=== PATIENT | male | born 1985 | race African-American/Black ===

== ENCOUNTER 2021-01-07 18:25 | Emergency (ER) | payer MEDICAID, OTHER ==
[~2021-01-07] VITALS: Ht 182.9 cm; Wt 99.1 kg
[2021-01-07 18:38] VITALS: BP 170/80
[2021-01-07] MEDS ORDERED: MAGNESIUM/ALUMINUM HYDROXIDE/SIMETHICONE 30ML UDC PO STA (20:17)
[2021-01-07] MEDS ORDERED: ONDANSETRON 4MG ODT PO STA (20:17)
[2021-01-07 22:26] LABS: BASOPHILS % 0.5 % (0.0-2.0); CHLORIDE 108 mEq/L (98-107); EOSINOPHILS % 3.3 % (0.0-5.0); HEMATOCRIT. 40.7 % (42.0-52.0); HEMOGLOBIN. 13.5 g/dL (14.0-18.0); LYMPHOCYTES % 40.3 % (20.0-50.0); MEAN CORPUSCULAR HEMOGLOBIN 27.6 pg (28.0-32.0); MEAN CORPUSCULAR VOLUME 83.2 fL (80.0-94.0); MEAN PLATELET VOLUME 7.6 fl (7.4-10.4); MONOCYTES % 9.3 % (2.0-8.0); NEUTROPHILS % 46.6 % (40.0-76.0); PLATELET 266 x1000/uL (130-400); RED BLOOD CELL COUNT 4.89 mill/uL (4.7-6.1); RED CELL DISTRIBUTION WIDTH 13.9 % (11.6-14.6)
[2021-01-07 22:29] LABS: ETHANOL BLOOD < 10 mg/dL
[2021-01-07] MEDS ORDERED: PROT20 MT (22:34)
[2021-01-07] MEDS ORDERED: ONDA4TAB5 MT (22:34)
== END 2021-01-07 22:43 | disposition home or self-care (01) ==
LOC: ER 18:25
DX: B34.9 Viral infection, unspecified (principal); R19.7 Diarrhea, unspecified; R11.2 Nausea with vomiting, unspecified; Z20.822 Contact with and (suspected) exposure to COVID-19; Z87.828 Personal history of other (healed) physical injury and trauma; Z98.890 Other specified postprocedural states
CPT/HCPCS: 36415; 80053; 80320; 83690; 85025; 93005; 99284; C9803; Q0162; U0003; U0005; G0480

== ENCOUNTER 2023-03-04 10:44 | Emergency (ER) | payer MEDICAID, OTHER ==
[~2023-03-04] VITALS: Ht 182.9 cm; Wt 96.0 kg
[~2023-03-04 10:44] MED LIST: ONDA4TAB5 MT; PROT20 MT
[2023-03-04 11:22] LABS: BASOPHILS % 0.3 % (0.0-2.0); EOSINOPHILS % 0.1 % (0.0-5.0); HEMATOCRIT. 43.5 % (42.0-52.0); HEMOGLOBIN. 14.1 g/dL (14.0-18.0); LYMPHOCYTES % 11.8 % (20.0-50.0); MEAN CORPUSCULAR HGB CONC 32.5 g/dL (31.0-37.0); MEAN CORPUSCULAR VOLUME 86.2 fL (80.0-94.0); MONOCYTES % 5.4 % (2.0-8.0); NEUTROPHILS % 82.4 % (40.0-76.0); PLATELET 307 x1000/uL (130-400); RED BLOOD CELL COUNT 5.04 mill/uL (4.7-6.1); RED CELL DISTRIBUTION WIDTH 14.3 % (11.6-14.6); WHITE BLOOD COUNT 7.8 x1000/uL (4.5-11.0)
[2023-03-04] MEDS ORDERED: HALOPERIDOL LACTATE 5MG/ML VIAL IM ONE (11:30)
[2023-03-04] MEDS ORDERED: DIPHENHYDRAMINE 50MG/ML VIAL IV ONE (11:30)
[2023-03-04] MEDS ORDERED: LORAZEPAM 2MG/ML CPJ IV ONE (11:30)
[2023-03-04] MEDS ORDERED: SODIUM CHLORIDE 0.9% 1,000 ML IV ONE (11:30)
[2023-03-04 11:45] LABS: INDEX HEMOLYSI 1 (1-3); INDEX ICTERIC 1 (1-4); INDEX LIPEMIC 1 (1-3)
[2023-03-04 11:53] LABS: ALANINE AMINOTRANSFERASE 36 IU/L (13-61); ALBUMIN 3.7 g/dL (3.4-5.0); ASPARTATE AMINOTRANSFERASE 18 IU/L (15-37); BILIRUBIN TOTAL 0.7 mg/dL (0.1-1.0); CALCIUM 9.1 mg/dL (8.5-10.1); CARBON DIOXIDE 26 mEq/L (21-32); GLUCOSE 125 mg/dL (70-105); PROTEIN TOTAL 7.2 g/dL (6.0-8.3); UREA NITROGEN BLOOD 7 mg/dL (7-21)
[2023-03-04 12:34] LABS: CHLORIDE 108 mEq/L (98-107); POTASSIUM 3.4 mEq/L (3.5-5.1); SODIUM 145 mEq/L (136-145)
[2023-03-04] MEDS ORDERED: ONDA4TAB50 MT (12:56)
[2023-03-04 17:33] VITALS: BP 132/69; PULSE 75; RESP 17; TEMP 98.7
== END 2023-03-04 18:52 | disposition home or self-care (01) ==
LOC: ER 10:44
DX: R10.9 Unspecified abdominal pain (principal); I10 Essential (primary) hypertension
CPT/HCPCS: 99284; 96374; 96361; 96375; 80053; 83690; 85025; 36415; 93005; 96372; J1200; J1630; J2060; J7030

== ENCOUNTER 2023-05-14 10:05 | Emergency (ER) | payer MEDICAID ==
[~2023-05-14] VITALS: Ht 182.9 cm; Wt 86.2 kg
[~2023-05-14 10:05] MED LIST changes: +ONDA4TAB50 MT
[2023-05-14 10:18] VITALS: BP 150/92; PULSE 69; RESP 16; TEMP 98.6; O2SAT 100
[2023-05-14 11:10] LABS: BASOPHILS % 0.4 % (0.0-2.0); EOSINOPHILS % 0.1 % (0.0-5.0); LYMPHOCYTES % 10.6 % (20.0-50.0); MEAN CORPUSCULAR HGB CONC 31.9 g/dL (31.0-37.0); MEAN CORPUSCULAR VOLUME 87.8 fL (80.0-94.0); MEAN PLATELET VOLUME 7.1 fl (7.4-10.4); MONOCYTES % 6.9 % (2.0-8.0); PLATELET 420 x1000/uL (130-400); RED BLOOD CELL COUNT 5.01 mill/uL (4.7-6.1); RED CELL DISTRIBUTION WIDTH 15.2 % (11.6-14.6); WHITE BLOOD COUNT 8.6 x1000/uL (4.5-11.0)
[2023-05-14 11:38] LABS: ALANINE AMINOTRANSFERASE 24 IU/L (10-49); ALBUMIN 4.1 g/dL (3.2-4.8); ASPARTATE AMINOTRANSFERASE 27 IU/L (<34); BILIRUBIN TOTAL 1.1 mg/dL (0.1-1.0); CALCIUM 9.3 mg/dL (8.7-10.4); CARBON DIOXIDE 27 mEq/L (21-32); CHLORIDE 111 mEq/L (98-107); CREATININE 1.1 mg/dL (0.6-1.3); GLUCOSE 134 mg/dL (70-105); PROTEIN TOTAL 7.1 g/dL (6.0-8.3); SODIUM 143 mEq/L (136-145); UREA NITROGEN BLOOD 10 mg/dL (9-23)
[2023-05-14] MEDS: HALOPERIDOL LACTATE 5MG/ML VIAL IM ONE (16:04)
[2023-05-14] MEDS ORDERED: FAMO-135 PO (16:52)
[2023-05-14] MEDS ORDERED: MAG-55 MT (16:53)
== END 2023-05-14 17:51 | disposition home or self-care (01) ==
LOC: ER 10:11
DX: R11.2 Nausea with vomiting, unspecified (principal); I10 Essential (primary) hypertension; Z79.899 Other long term (current) drug therapy
CPT/HCPCS: 80053; 83690; 85025; 36415; 74176; 96372; 99285; J1630; Z7610

== ENCOUNTER 2023-05-21 10:23 | Emergency (ER) | payer MEDICAID ==
[~2023-05-21] VITALS: Ht 182.9 cm; Wt 100.0 kg
[~2023-05-21 10:23] MED LIST changes: +FAMO-135 PO; +MAG-55 MT
[2023-05-21 10:25] VITALS: BP 132/74; PULSE 80; RESP 16; TEMP 98.5; O2SAT 99
[2023-05-21] MEDS ORDERED: PANTOPRAZOLE SODIUM 40 MG/VIAL IV STA (11:03)
[2023-05-21] MEDS ORDERED: MORPHINE SULFATE 4 MG/ML CPJ (NOT FOR IM USE) IV STA (11:03)
[2023-05-21] MEDS ORDERED: METOCLOPRAMIDE HCL 10MG/2ML VIAL IV STA (11:03)
[2023-05-21] MEDS ORDERED: ONDANSETRON HCL 4MG/2ML INJ IV STA (11:03)
[2023-05-21] MEDS ORDERED: SODIUM CHLORIDE 0.9% 1,000 ML IV ONE (11:15)
[2023-05-21 11:38] LABS: BASOPHILS % 0.6 % (0.0-2.0); EOSINOPHILS % 0.3 % (0.0-5.0); HEMOGLOBIN. 14.9 g/dL (14.0-18.0); LYMPHOCYTES % 19.7 % (20.0-50.0); MEAN CORPUSCULAR HEMOGLOBIN 28.5 pg (28.0-32.0); MEAN CORPUSCULAR HGB CONC 33.2 g/dL (31.0-37.0); MEAN PLATELET VOLUME 7.2 fl (7.4-10.4); MONOCYTES % 11.2 % (2.0-8.0); NEUTROPHILS % 68.2 % (40.0-76.0); PLATELET 316 x1000/uL (130-400); RED BLOOD CELL COUNT 5.23 mill/uL (4.7-6.1); RED CELL DISTRIBUTION WIDTH 14.4 % (11.6-14.6); WHITE BLOOD COUNT 5.5 x1000/uL (4.5-11.0)
[2023-05-21 11:55] LABS: ALANINE AMINOTRANSFERASE 31 IU/L (10-49); ALBUMIN 4.6 g/dL (3.2-4.8); ASPARTATE AMINOTRANSFERASE 22 IU/L (<34); BILIRUBIN TOTAL 0.9 mg/dL (0.1-1.0); CALCIUM 9.6 mg/dL (8.7-10.4); CARBON DIOXIDE 20 mEq/L (21-32); CHLORIDE 102 mEq/L (98-107); CREATININE 1.2 mg/dL (0.6-1.3); GLUCOSE 91 mg/dL (70-105); POTASSIUM 3.2 mEq/L (3.5-5.1); PROTEIN TOTAL 8.2 g/dL (6.0-8.3); SODIUM 137 mEq/L (136-145); UREA NITROGEN BLOOD 12 mg/dL (9-23)
[2023-05-21 12:00] LABS: INR 1.1; PROTHROMBIN TIME 11.4 sec (9.6-11.0)
[2023-05-21] MEDS ORDERED: ONDA4TAB11 PO (14:24)
[2023-05-21] MEDS ORDERED: HYDR-4001 MT (14:24)
[2023-05-21] MEDS ORDERED: SUCR1TAB MT (14:24)
[2023-05-21] MEDS ORDERED: OMEP40CA20 MT (14:24)
[2023-05-21] MEDS ORDERED: METO-293 MT (14:24)
== END 2023-05-21 14:39 | disposition home or self-care (01) ==
LOC: ER 10:33 → CANBEDREQ 14:23 → ER 14:39
DX: R10.9 Unspecified abdominal pain (principal); R11.2 Nausea with vomiting, unspecified; I10 Essential (primary) hypertension
CPT/HCPCS: 99284; 96374; 96375; 80053; 83690; 85025; 85610; 36415; J2765; J2405; C9113; J2270; J7030

== ENCOUNTER 2023-06-17 18:59 | Emergency (ER) | payer MEDICAID ==
[~2023-06-17] VITALS: Ht 182.9 cm; Wt 81.3 kg
[~2023-06-17 18:59] MED LIST changes: +HYDR-4001 MT; +METO-293 MT; +OMEP40CA20 MT; +ONDA4TAB11 PO; +SUCR1TAB MT
[2023-06-17 19:23] VITALS: BP 147/87; PULSE 102; RESP 15; TEMP 98.6; O2SAT 100
[2023-06-17] MEDS ORDERED: KETOROLAC 15MG/ML VIAL IM ONE (22:00)
[2023-06-17] MEDS ORDERED: ERYT1OIN6 EACHEYE (22:24)
[2023-06-17] MEDS ORDERED: METR45CR TP (22:24)
[2023-06-17] MEDS ORDERED: ACET-2708 MT (22:41)
== END 2023-06-17 23:00 | disposition home or self-care (01) ==
LOC: ER 18:59
DX: H10.9 Unspecified conjunctivitis (principal); L30.9 Dermatitis, unspecified; F10.20 Alcohol dependence, uncomplicated; Z79.899 Other long term (current) drug therapy
CPT/HCPCS: 99281; 99283; J1885

== ENCOUNTER 2023-07-04 06:23 | Emergency (ER) | payer MEDICAID ==
[~2023-07-04] VITALS: Ht 182.9 cm; Wt 72.1 kg
[~2023-07-04 06:23] MED LIST changes: +ACET-2708 MT; +ERYT1OIN6 EACHEYE; +METR45CR TP
[2023-07-04 06:34] VITALS: O2SAT 100
[2023-07-04 08:28] LABS: CLARITY URINE CLEAR (CLEAR); COLOR URINE YELLOW (YELLOW); GLUCOSE URINE NEGATIVE (NEGATIVE); KETONES URINE 1+ (NEGATIVE); LEUKOCYTE ESTERASE URINE TRACE (NEGATIVE); NITRITE URINE NEGATIVE (NEGATIVE); OCCULT BLOOD URINE NEGATIVE (NEGATIVE); PROTEIN URINE 1+ (NEGATIVE); SPECIFIC GRAVITY URINE 1.016 (1.005-1.030)
[2023-07-04 08:30] LABS: BASOPHILS % 0.7 % (0.0-2.0); EOSINOPHILS % 0.8 % (0.0-5.0); HEMATOCRIT. 46.7 % (42.0-52.0); HEMOGLOBIN. 15.4 g/dL (14.0-18.0); LYMPHOCYTES % 25.1 % (20.0-50.0); MEAN CORPUSCULAR HEMOGLOBIN 28.3 pg (28.0-32.0); MEAN CORPUSCULAR VOLUME 85.8 fL (80.0-94.0); MEAN PLATELET VOLUME 7.4 fl (7.4-10.4); MONOCYTES % 10.2 % (2.0-8.0); NEUTROPHILS % 63.2 % (40.0-76.0); PLATELET 401 x1000/uL (130-400); RED BLOOD CELL COUNT 5.44 mill/uL (4.7-6.1); RED CELL DISTRIBUTION WIDTH 14.9 % (11.6-14.6)
[2023-07-04 08:36] LABS: PROTHROMBIN TIME 11.6 sec (9.6-11.0)
[2023-07-04 08:45] LABS: ALANINE AMINOTRANSFERASE 24 IU/L (10-49); ALBUMIN 4.8 g/dL (3.2-4.8); ASPARTATE AMINOTRANSFERASE 26 IU/L (<34); BILIRUBIN TOTAL 1.2 mg/dL (0.1-1.0); CALCIUM 9.9 mg/dL (8.7-10.4); CARBON DIOXIDE 27 mEq/L (21-32); CHLORIDE 99 mEq/L (98-107); CREATININE 1.2 mg/dL (0.6-1.3); GLUCOSE 112 mg/dL (70-105); SODIUM 134 mEq/L (136-145); UREA NITROGEN BLOOD 10 mg/dL (9-23)
[2023-07-04 08:48] LABS: BACTERIA URINE NONE SEEN; RBC URINE 0-2 /hpf (0-2); SQUAMOUS EPITHELIAL CELL URINE RARE /lpf (RARE/1+); WBC URINE 0-2 /hpf (0-2); YEAST URINE NONE SEEN
[2023-07-04] MEDS: KETOROLAC 60MG/2ML VIAL IM STA (08:54)
[2023-07-04] MEDS: MAGNESIUM/ALUMINUM HYDROXIDE/SIMETHICONE 30ML UDC PO STA (08:54)
[2023-07-04] MEDS: ONDANSETRON 4MG ODT PO STA (08:54)
[2023-07-04] MEDS: POTASSIUM CHLORIDE 20MEQ TABLET SR PO ONE (09:00)
[2023-07-04] MEDS: FAMOTIDINE 20MG TABLET PO ONE (09:00)
[2023-07-04] MEDS ORDERED: FAMO-135 MT (10:36)
[2023-07-04] MEDS ORDERED: ONDA4TAB11 PO (10:36)
[2023-07-04 10:59] VITALS: BP 163/100; PULSE 100; RESP 17; TEMP 97.8
== END 2023-07-04 11:08 | disposition home or self-care (01) ==
LOC: ER 06:46
DX: R10.84 Generalized abdominal pain (principal); F10.20 Alcohol dependence, uncomplicated; Z98.890 Other specified postprocedural states; Z88.0 Allergy status to penicillin; Y90.9 Presence of alcohol in blood, level not specified
CPT/HCPCS: 80053; 81003; 83690; 85025; 85610; 36415; 74176; 96372; 99285; Q0162; J1885; Z7610

== ENCOUNTER 2023-10-16 09:20 | Emergency (ER) | payer MEDICAID ==
[~2023-10-16] VITALS: Ht 188 cm; Wt 90.0 kg
[~2023-10-16 09:20] MED LIST changes: +FAMO-135 MT
[2023-10-16 09:44] VITALS: BP 157/94; PULSE 98; TEMP 98.3; O2SAT 100
[2023-10-16 10:36] VITALS: RESP 17
[2023-10-16] MEDS: IBUPROFEN 600MG TABLET PO ONE (10:36)
[2023-10-16] MEDS ORDERED: IBUP-2029 MT (12:49)
[2023-10-16] MEDS ORDERED: CHLO473M2 MT (12:49)
[2023-10-16] MEDS ORDERED: TRAM50TA3 MT (12:54)
== END 2023-10-16 13:04 | disposition home or self-care (01) ==
LOC: ER 09:56
DX: S62.112A Displaced fracture of triquetrum [cuneiform] bone, left wrist, initial encounter for closed fracture (principal); S60.221A Contusion of right hand, initial encounter; F10.20 Alcohol dependence, uncomplicated; Z98.890 Other specified postprocedural states; Z88.0 Allergy status to penicillin; X58.XXXA Exposure to other specified factors, initial encounter; Y93.89 Activity, other specified; Y92.89 Other specified places as the place of occurrence of the external cause; Y99.8 Other external cause status; Y90.9 Presence of alcohol in blood, level not specified
CPT/HCPCS: 29125; 29130; 73110; 73130; 99284

== ENCOUNTER 2024-09-04 00:52 | Emergency (ER) | payer MEDICAID ==
[~2024-09-04] VITALS: Ht 182.9 cm; Wt 78.0 kg
[~2024-09-04 00:52] MED LIST changes: +CHLO473M2 MT; +IBUP-2029 MT; +ONDA-239 PO; -ONDA4TAB11 PO; +TRAM50TA3 MT
[2024-09-04 01:11] VITALS: O2SAT 100
[2024-09-04 01:15] VITALS: TEMP 36.9; O2SAT 100
[2024-09-04 02:38] VITALS: BP 131/78; PULSE 96; RESP 18
[2024-09-04] MEDS: KETOROLAC 30MG/ML VIAL IM ONE (02:38)
[2024-09-04] MEDS ORDERED: ACET-2708 MT (03:44)
[2024-09-04] MEDS ORDERED: NAPR-1129 MT (03:44)
== END 2024-09-04 04:08 | disposition home or self-care (01) ==
LOC: ER 00:52
DX: S50.312A Abrasion of left elbow, initial encounter (principal); G89.11 Acute pain due to trauma; Z79.899 Other long term (current) drug therapy; Z88.0 Allergy status to penicillin; X58.XXXA Exposure to other specified factors, initial encounter; Y93.89 Activity, other specified; Y92.89 Other specified places as the place of occurrence of the external cause; Y99.8 Other external cause status
CPT/HCPCS: 99284; 71045; 73130; 29130; J1885

== ENCOUNTER 2024-12-04 22:35 | Emergency (ER) | payer MEDICAID ==
[~2024-12-04] VITALS: Ht 182.9 cm; Wt 80.0 kg
[~2024-12-04 22:35] MED LIST changes: +NAPR-1129 MT
[2024-12-04 22:43] VITALS: TEMP 36.8; O2SAT 100; O2SAT 99
[2024-12-04 23:52] VITALS: BP 132/73; PULSE 93; RESP 18
[2024-12-04] MEDS: KETOROLAC 30MG/ML VIAL IM ONE (23:52)
[2024-12-05] MEDS ORDERED: LIDO-53 TP (01:04)
[2024-12-05] MEDS ORDERED: IBUP-2028 MT (01:04)
[2024-12-05] MEDS ORDERED: TOPUD PO (01:04)
[2024-12-05] MEDS ORDERED: METH-653 MT (01:04)
== END 2024-12-05 01:13 | disposition home or self-care (01) ==
LOC: ER 22:35
DX: S13.4XXA Sprain of ligaments of cervical spine, initial encounter (principal); Z79.899 Other long term (current) drug therapy; Z87.891 Personal history of nicotine dependence; Z88.0 Allergy status to penicillin; V89.2XXA Person injured in unspecified motor-vehicle accident, traffic, initial encounter; Y93.89 Activity, other specified; Y92.89 Other specified places as the place of occurrence of the external cause; Y99.8 Other external cause status
CPT/HCPCS: 99284; 72040; 72100; 73130; 73610; 73630; 96372; J1885

== ENCOUNTER 2024-12-21 05:35 | Inpatient (IN) | payer MEDICAID, OTHER ==
[~2024-12-21] VITALS: Ht 182.9 cm; Wt 76.9 kg
[~2024-12-21 05:35] MED LIST changes: +IBUP-2028 MT; +LIDO-53 TP; +METH-653 MT; +TOPUD PO
[2024-12-21 05:37] VITALS: O2SAT 98
[2024-12-21] MEDS: METOCLOPRAMIDE HCL 10MG/2ML VIAL IV ONE (06:26)
[2024-12-21 06:27] LABS: BASOPHILS % 0.9 % (0.0-2.0); EOSINOPHILS % 1.3 % (0.0-5.0); HEMATOCRIT. 43.8 % (42.0-52.0); HEMOGLOBIN. 14.4 g/dL (14.0-18.0); LYMPHOCYTES % 20.6 % (20.0-50.0); MEAN PLATELET VOLUME 7.5 fl (7.4-10.4); MONOCYTES % 7.4 % (2.0-8.0); NEUTROPHILS % 69.8 % (40.0-76.0); PLATELET 312 x1000/uL (130-400); RED BLOOD CELL COUNT 5.06 mill/uL (4.7-6.1); RED CELL DISTRIBUTION WIDTH 14.1 % (11.6-14.6)
[2024-12-21 06:41] LABS: CREATININE 1.3 mg/dL (0.6-1.3); UREA NITROGEN BLOOD 16 mg/dL (9-23)
[2024-12-21 06:43] LABS: ASPARTATE AMINOTRANSFERASE 25 IU/L (<34); BILIRUBIN DIRECT 0.3 mg/dL (<=3.0); BILIRUBIN TOTAL 1.3 mg/dL (0.1-1.0); PROTEIN TOTAL 7.6 g/dL (6.0-8.3)
[2024-12-21] MEDS: PANTOPRAZOLE SODIUM 40 MG/VIAL IV ONE (06:43)
[2024-12-21] MEDS: LACTATED RINGERS 1,000 ML IV SCH (07:10)
[2024-12-21] MEDS: PANTOPRAZOLE 80 MG in SODIUM CHLORIDE 0.9% 100 ML IV SCH (07:31)
[2024-12-21 08:00] VITALS: BP 165/87; PULSE 52; PULSE 62; RESP 18; TEMP 36.1; O2SAT 97
[2024-12-21] MEDS ORDERED: LORAZEPAM 1MG TABLET PO PRN (08:30)
[2024-12-21] MEDS: PANTOPRAZOLE SODIUM 40 MG/VIAL IV SCH (09:44)
[2024-12-21] MEDS: ONDANSETRON HCL 4MG/2ML INJ IV PRN (09:44)
[2024-12-21] MEDS: AMLODIPINE 10MG TABLET PO SCH (11:45)
[2024-12-21 12:00] VITALS: BP 182/105; PULSE 53; RESP 18; TEMP 36.3; O2SAT 99
[2024-12-21 12:08] VITALS: BP 165/87; PULSE 62; RESP 18; TEMP 36.14
[2024-12-21] MEDS ORDERED: IOHEXOL-300 100 ML BOTTLE ONE (14:15)
[2024-12-21 16:00] VITALS: BP 160/89; PULSE 83; RESP 18; TEMP 36.7; O2SAT 98
== END 2024-12-21 19:30 | disposition left against medical advice (07) | DRG 242 ==
LOC: ER 05:50 → 5WST 06:44 → EDBEDREQTM 06:51 → EDBEDREQ 06:51 → ENRESERV 07:09
PROVIDERS: ADMIT Internal Medicine; ATTEND Internal Medicine
DX: K22.6 Gastro-esophageal laceration-hemorrhage syndrome (principal); F10.10 Alcohol abuse, uncomplicated; K52.9 Noninfective gastroenteritis and colitis, unspecified; Y90.9 Presence of alcohol in blood, level not specified; Z53.29 Procedure and treatment not carried out because of patient's decision for other reasons; I10 Essential (primary) hypertension; Z88.0 Allergy status to penicillin
CPT/HCPCS: 36415; 74177; 80048; 80076; 85025; 86850; 86900; 99291; A4606; J2405; J2470; J2765; J7050; Q9967

== ENCOUNTER 2025-01-11 20:38 | Emergency (ER) | payer MEDICAID ==
[~2025-01-11] VITALS: Ht 182.9 cm; Wt 81.0 kg
[2025-01-11 20:46] VITALS: O2SAT 99
[2025-01-11] MEDS ORDERED: CEPH500T MT (21:08)
[2025-01-11] MEDS ORDERED: FAMO-287 MT (21:08)
[2025-01-11 21:20] VITALS: BP 117/85; PULSE 81; RESP 18; TEMP 36.8; O2SAT 100
== END 2025-01-11 21:23 | disposition home or self-care (01) ==
LOC: ER 20:38
DX: L08.9 Local infection of the skin and subcutaneous tissue, unspecified (principal); Z79.899 Other long term (current) drug therapy
CPT/HCPCS: 99283